=== PATIENT | male | born 1965 | race Caucasian/White ===

== ENCOUNTER 2016-06-24 16:09 | Emergency (ER) | payer MEDICAID ==
[~2016-06-24] VITALS: Ht 188 cm; Wt 77.9 kg
[~2016-06-24 16:09] MED LIST: LEVO500T33 PO; SULF1TAB24 PO; TAMS-11 PO
[2016-06-24 17:25] LABS: BLOOD UREA NITROGEN 10 mg/dL (7-18)
[2016-06-24] MEDS ORDERED: OMNIPAQUE 350 MG/ML, 100ML BOTTLE ONE (21:31)
[2016-06-24 22:38] VITALS: BP 113/82
== END 2016-06-24 22:40 | disposition home or self-care (01) ==
LOC: ED 21:59
DX: R33.9 Retention of urine, unspecified (principal); N13.30 Unspecified hydronephrosis
CPT/HCPCS: 36415; 51702; 74177; 80048; 81003; 82040; 85025; 99285; Q9967

== ENCOUNTER 2016-06-26 06:35 | Emergency (ER) | payer MEDICAID ==
[~2016-06-26] VITALS: Ht 188 cm; Wt 77.0 kg
[2016-06-26] MEDS ORDERED: CEFTRIAXONE 1,000 MG IM ONE (07:30)
[2016-06-26 07:59] LABS: ASPARTATE AMINO TRANSFERASE 15 U/L (15-37); BLOOD UREA NITROGEN 9 mg/dL (7-18)
[2016-06-26 11:03] VITALS: BP 133/79
== END 2016-06-26 11:05 | disposition home or self-care (01) ==
LOC: ED 07:58
DX: T83.511A Infection and inflammatory reaction due to indwelling urethral catheter, initial encounter (principal); R31.0 Gross hematuria; N40.0 Benign prostatic hyperplasia without lower urinary tract symptoms; J96.90 Respiratory failure, unspecified, unspecified whether with hypoxia or hypercapnia; C85.90 Non-Hodgkin lymphoma, unspecified, unspecified site
CPT/HCPCS: 36415; 80053; 85025; 85610; 85730; J0696; 51702; 96372

== ENCOUNTER 2016-07-26 13:26 | Emergency (ER) | payer MEDICAID ==
[~2016-07-26] VITALS: Ht 188 cm; Wt 79.5 kg
[2016-07-26 18:45] VITALS: BP 137/68
== END 2016-07-26 18:48 | disposition home or self-care (01) ==
LOC: ED 17:13
DX: N39.0 Urinary tract infection, site not specified (principal); R31.9 Hematuria, unspecified; N40.1 Benign prostatic hyperplasia with lower urinary tract symptoms; R33.8 Other retention of urine
CPT/HCPCS: 51701; 81001; 87086

== ENCOUNTER 2016-08-02 03:49 | Emergency (ER) | payer MEDICAID ==
[~2016-08-02] VITALS: Ht 188 cm; Wt 80.5 kg
[2016-08-02 09:04] VITALS: BP 124/83
== END 2016-08-02 09:07 | disposition home or self-care (01) ==
LOC: ED 07:15
DX: T83.098A Other mechanical complication of other urinary catheter, initial encounter (principal); X58.XXXA Exposure to other specified factors, initial encounter; Y92.89 Other specified places as the place of occurrence of the external cause
CPT/HCPCS: 51702; 81001; 87086

== ENCOUNTER 2017-07-23 12:59 | Emergency (ER) | payer MEDICAID ==
[~2017-07-23] VITALS: Ht 188 cm; Wt 77.3 kg
[~2017-07-23 12:59] MED LIST changes: -LEVO500T33 PO; +LEVO500T47 PO
[2017-07-23 13:02] VITALS: BP 110/66
[2017-07-23] MEDS ORDERED: OXYcodone/APAP 5/325MG TABLET ONE (13:55)
[2017-07-23] MEDS ORDERED: OXYcodone/APAP 5/325MG TABLET PO ONE (14:00)
== END 2017-07-23 15:10 | disposition home or self-care (01) ==
LOC: ED 15:04
DX: S46.011A Strain of muscle(s) and tendon(s) of the rotator cuff of right shoulder, initial encounter (principal); W01.0XXA Fall on same level from slipping, tripping and stumbling without subsequent striking against object, initial encounter; Y93.89 Activity, other specified; Y99.8 Other external cause status; Y92.410 Unspecified street and highway as the place of occurrence of the external cause
CPT/HCPCS: 99284

== ENCOUNTER 2017-08-14 10:45 | Emergency (ER) | payer MEDICAID ==
[~2017-08-14] VITALS: Ht 188 cm; Wt 74.4 kg
[2017-08-14 10:48] VITALS: BP 102/67
== END 2017-08-14 12:03 | disposition home or self-care (01) ==
LOC: ED 11:56
DX: M25.562 Pain in left knee (principal); F17.200 Nicotine dependence, unspecified, uncomplicated
CPT/HCPCS: 99284

== ENCOUNTER 2018-01-23 02:25 | Emergency (ER) | payer MEDICAID ==
[~2018-01-23] VITALS: Ht 188 cm; Wt 78.1 kg
[2018-01-23] MEDS ORDERED: CLINDAMYCIN 300 MG CAPSULE PO ONE (04:30)
[2018-01-23] MEDS ORDERED: CLINDAMYCIN 300 MG CAPSULE ONE (04:32)
[2018-01-23 05:32] VITALS: BP 134/81
== END 2018-01-23 05:34 | disposition home or self-care (01) ==
LOC: ED 03:08
DX: I83.018 Varicose veins of right lower extremity with ulcer other part of lower leg (principal); I83.028 Varicose veins of left lower extremity with ulcer other part of lower leg; L03.115 Cellulitis of right lower limb; L97.829 Non-pressure chronic ulcer of other part of left lower leg with unspecified severity; L97.819 Non-pressure chronic ulcer of other part of right lower leg with unspecified severity; F17.210 Nicotine dependence, cigarettes, uncomplicated; Z87.438 Personal history of other diseases of male genital organs
CPT/HCPCS: 99283

== ENCOUNTER 2018-04-25 18:18 | Emergency (ER) | payer MEDICAID ==
[~2018-04-25] VITALS: Ht 188 cm; Wt 76.5 kg
--- NOTE | 2018-04-25 19:20 | NUR ---
18fr cath ordered from central supply. awaiting arrival
--- NOTE | 2018-04-25 20:20 | NUR ---
LUNA PLACED PER PROTOCOL. PT TOLERATED PROCEDURE WELL. CLOUDY YELLOW DRAINING. RISHI Pappas RN WITNESS TO INSERTION.
[2018-04-25 21:38] VITALS: BP 137/94
== END 2018-04-25 21:50 | disposition home or self-care (01) ==
LOC: ED 18:53
DX: T83.031A Leakage of indwelling urethral catheter, initial encounter (principal); Y84.6 Urinary catheterization as the cause of abnormal reaction of the patient, or of later complication, without mention of misadventure at the time of the procedure
CPT/HCPCS: 51702; 99284

== ENCOUNTER 2018-04-26 18:56 | Emergency (ER) | payer MEDICAID ==
[~2018-04-26] VITALS: Ht 188 cm; Wt 77.3 kg
[2018-04-26 19:12] VITALS: BP 114/66
--- NOTE | 2018-04-26 22:29 | NUR ---
PT HERE FOR CATHETER LEAK. PT REPROTS CATHETER WAS PLACED LAST WEEK. PT REPORTS HE HAS NOT SEEN HIS UROLOGIST. PT REPORTS NO TRUAMA TO AREA. CATH TO BE REPLACED.
--- NOTE | 2018-04-26 22:47 | NUR ---
PTS CATHETER REPLACED WITHOUT COMPLICATION. PT UA SENT TO LAB.
[2018-04-26 22:59] LABS: CULTURE INDICATED? YES; MICROSCOPIC INDICATED
[2018-04-26] MEDS ORDERED: CEFDINIR 300 MG CAPSULE PO ONE (23:30)
[2018-04-26] MEDS ORDERED: CEFDINIR 300 MG CAPSULE ONE (23:47)
[2018-04-26] MEDS ORDERED: LOPERAMIDE 2 MG CAPSULE ONE (23:51)
--- NOTE | 2018-04-26 23:53 | NUR ---
Patient/Caregiver given discharge instructions and they have confirmed that they understand the instructions. Patient ambulatory with steady gait.
== END 2018-04-26 23:54 | disposition home or self-care (01) ==
LOC: ED 22:50
DX: T83.038A Leakage of other urinary catheter, initial encounter (principal); N30.01 Acute cystitis with hematuria; F17.200 Nicotine dependence, unspecified, uncomplicated; N40.0 Benign prostatic hyperplasia without lower urinary tract symptoms
CPT/HCPCS: 51702; 81001; 87077; 87086; 99284; C1726; 87186

== ENCOUNTER 2018-04-27 02:03 | Emergency (ER) | payer MEDICAID ==
[~2018-04-27] VITALS: Ht 188 cm; Wt 76.9 kg
--- NOTE | 2018-04-27 02:38 | NUR ---
PT. REPORTS "THEY JUST PUT A CATHETER IN I LEFT AT 0000 AND IT PASSED A COUPLE OF BIG CLOTS AND IT'S ALREADY PLUGGED UP". per triage note
--- NOTE | 2018-04-27 03:04 | NUR ---
irrigated gates flushed and back out 200mls in and 200mls out pt stated having bladder spasm a lot irrigation was stopped no clots have been seen vss updated
--- NOTE | 2018-04-27 03:35 | NUR ---
urine is flowing via gates pt understood pt up ambulated to check out after given all dc instruction
[2018-04-27 03:36] VITALS: BP 120/75
== END 2018-04-27 03:38 | disposition home or self-care (01) ==
LOC: ED 03:27
DX: T83.091A Other mechanical complication of indwelling urethral catheter, initial encounter (principal); N30.01 Acute cystitis with hematuria
CPT/HCPCS: 51700; 99284

== ENCOUNTER 2018-04-27 22:11 | Emergency (ER) | payer MEDICAID ==
[~2018-04-27] VITALS: Ht 188 cm; Wt 76.1 kg
[2018-04-27 22:22] VITALS: BP 110/77
--- NOTE | 2018-04-27 22:39 | NUR ---
"CLOGGED CATHETER. STOPPED FLOWING AROUND 4 HOURS AGO" SEEN HERE THIS AM FOR SAME
--- NOTE | 2018-04-27 23:00 | NUR ---
flushed cath, leaked around anhd did not drain all fluid
--- NOTE | 2018-04-27 23:57 | NUR ---
Patient/Caregiver given discharge instructions and they have confirmed that they understand the instructions. Patient ambulatory with steady gait.
== END 2018-04-28 00:14 ==
LOC: ED 23:56
DX: T83.091A Other mechanical complication of indwelling urethral catheter, initial encounter (principal); R33.9 Retention of urine, unspecified; N40.0 Benign prostatic hyperplasia without lower urinary tract symptoms
CPT/HCPCS: 51702; 99284

== ENCOUNTER 2018-12-24 04:22 | Inpatient (IN) | payer MEDICAID ==
[~2018-12-24] VITALS: Ht 188 cm; Wt 75.9 kg
[~2018-12-24 04:22] MED LIST changes: +FINA5TAB4 PO
--- NOTE | 2018-12-24 04:46 | NUR ---
PT BIB [facility] TONIGHT WITH CHIEF COMPLAINT OF INCREASING WEAKNESS X 3 WEEKS WITH LETHARGY AND INABILITY FOR PT TO STRAIGHT CATH HIMSELF. PER EMS, PT RETAINING URINE. 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 PER EMS, NO INTERVENTIONS OR EKG WERE DONE EN ROUTE TO [facility] ED. UPON ARRIVAL TO [facility] ED, PT WAS FOUND TO BE 84% ON ROOM AIR. PT PLACED ON NC AND OXY MASK WITH INABILITY TO IMPROVE PT HYPOXIA. PT PLACED ON 15 L NON-REBREATHER. PT HR [address] WITH OCCASIONAL PVC ON THE MONITOR. PT PLACED INTO GOWN. IV ACCESS ESTABLISHED. LABS DRAWN AND SENT TO LAB AT THIS TIME. DR. BROWN AT BS WITH PT FOR HISTORY AND ASSESSMENT. AWAITING ORDERS AT THIS TIME. CISSP JILL NOTIFIED OF PT CONDITION AND PT WAS TRANSFERRED TO TRAUMA ROOM. REPORT OF PT TO BEE DONG WHO IS ASSUMING CARE OF THIS PT.
[2018-12-24] MEDS ORDERED: PIPERACILLIN/TAZO/PMX 3.375GM 50 ML ONE (04:58)
[2018-12-24] MEDS ORDERED: SODIUM CHLORIDE FLUSH 10ML SYR IVF ONE ×2 (05:00→06:00)
[2018-12-24] MEDS ORDERED: SODIUM CHLORIDE 0.9% 1,000ML IVBOLUS ONE ×3 (05:00→06:00)
[2018-12-24] MEDS ORDERED: VANCOMYCIN PER PHARMACY MC ONE (05:00)
[2018-12-24] MEDS ORDERED: PIPERACILLIN/TAZO/PMX 3.375GM 50 ML IVPB ONE (05:00)
[2018-12-24 05:05] LABS: INTERNATIONAL NORMALIZED RATIO 1.16 (0.93-1.1); PROTHROMBIN TIME 12.1 Seconds (9.6-11.5)
[2018-12-24 05:07] LABS: ALANINE AMINOTRANSFERASE 17 U/L (12-78); ALBUMIN 2.8 g/dL (3.4-5.0); ANION GAP 13 mmol/L (5-15); CALCIUM 8.9 mg/dL (8.5-10.1); CHLORIDE 108 mmol/L (98-107); CREATININE 1.61 mg/dL (0.7-1.3)
--- NOTE | 2018-12-24 05:09 | NUR ---
BC X2 DONE BY LAB. ABX NOW INFUSING. RT AT BEDSIDE TO TRIAL OPTIFLOW
[2018-12-24 05:12] LABS: ALKALINE PHOSPHATASE 124 U/L (45-117); BILIRUBIN,TOTAL 1.4 mg/dL (0.2-1.0); TOTAL PROTEIN 6.9 g/dL (6.4-8.2); TROPONIN I < 0.015 ng/mL (0.000-0.045)
[2018-12-24] MEDS ORDERED: FUROSEMIDE 40 MG/4 ML ONE (05:19)
[2018-12-24] MEDS ORDERED: SODIUM BICARBONATE 1 MEQ/ML, 50ML VIAL ONE (05:19)
[2018-12-24] MEDS ORDERED: CALCIUM CHLORIDE 10%, 10ML SYR ONE (05:19)
[2018-12-24 05:21] LABS: MEAN CORPUSCULAR HEMOGLOBIN 37.6 pg (27.5-34.5); MEAN CORPUSCULAR HGB CONC 32.5 g/dL (33.2-36.2); MEAN CORPUSCULAR VOLUME 115.4 fL (81-97); RED BLOOD COUNT 2.97 x10^6/uL (4.38-5.82); RED CELL DISTRIBUTION WIDTH 25.4 % (9.4-14.8)
[2018-12-24] MEDS ORDERED: INSULIN SINGLE DOSE, ER SQ-INSULIN ONE (05:21)
[2018-12-24] MEDS ORDERED: CALCIUM CHLORIDE 10%, 10ML SYR IVPush ONE (05:30)
[2018-12-24] MEDS ORDERED: DEXTROSE 50%, 50ML SYRINGE IVPush ONE (05:30)
[2018-12-24] MEDS ORDERED: SODIUM BICARB 8.4%, 50ML SYRINGE IVPush ONE (05:30)
[2018-12-24] MEDS ORDERED: FUROSEMIDE 40 MG/4 ML IVPush ONE (05:30)
[2018-12-24] MEDS ORDERED: ALBUTEROL 0.5%, 20ML NPPB ONE (05:30)
[2018-12-24] MEDS ORDERED: VANCOMYCIN 1,300 MG in SODIUM CHLORIDE 0.9% 250 ML IV ONE (05:30)
[2018-12-24] MEDS ORDERED: INSULIN REGULAR 100 UNITS/ML, 3ML VIAL IVPush ONE (05:30)
[2018-12-24 05:39] LABS: MICROSCOPIC AUTO
[2018-12-24 05:42] LABS: CULTURE INDICATED? YES
[2018-12-24 05:45] LABS: MD YES
[2018-12-24 05:49] LABS: MEAN PLATELET VOLUME 8.8 fL (7.4-10.4); PLATELET COUNT 172 x10^3/uL (130-400)
[2018-12-24 05:51] LABS: BAND#(MANUAL) 1.51 x10^3/uL; BANDS%(MANUAL) 1 % (0-7); MONOS#(MANUAL) 6.04 x10^3/uL (0.3-2.7); MONOS% (MANUAL) 4 % (2-9); NRBC % (MANUAL) 1 % (0-1); OTHER CELLS # (MANUAL) 113.33 x10^3/uL (0-0); SEG#(MANUAL) 30.22 x10^3/uL (1.8-6.8); SEGS% (MANUAL) 20 % (42-75)
[2018-12-24 05:53] LABS: <PLATELET ESTIMATE> ADEQUATE; <PLT MORPHOLOGY> NORMAL PLT MORPH; ANISOCYTOSIS 2+; POLYCHROMASIA 1+; SMUDGE CELLS 1+
[2018-12-24] MEDS ORDERED: SODIUM CHLORIDE 0.9% 1,000 ML IV ONE (05:53)
[2018-12-24 05:56] LABS: TOXIC GRAN 1+
[2018-12-24 06:00] LABS: OTHER CELLS % (MANUAL) 75 % (0-0)
--- NOTE | 2018-12-24 06:03 | NUR ---
PT TOLERATING OPTIFLOW WELL. PTS RESP DISTRESS HAS SOMEWHAT IMPROVED. PT GIVEN SMALL SIPS OF WATER PER MD LONG. POC DISCUSSED. PT AWARE WITH PLAN TO ADMIT. PT DENIES FURTHER NEEDS AT THIS TIME.
[2018-12-24] MEDS ORDERED: ACETAMINOPHEN 500 MG TABLET ONE (06:06)
--- NOTE | 2018-12-24 06:09 | NUR ---
PT WAS FOUND TO HAVE A CORE TEMP OF 101.1. MD INFORMED. PT MEDICATED WITH TYLENOL. PT TAKING PO FLUIDS WELL.
--- NOTE | 2018-12-24 06:22 | NUR ---
DR MARS REQUESTS TO SEE PT IN THE CCU. BED REQUEST MADE.
[2018-12-24] MEDS ORDERED: ACETAMINOPHEN 500 MG TABLET PO ONE (06:30)
[2018-12-24] MEDS ORDERED: ONDANSETRON 2MG/ML, 2ML IVPush PRN (08:00)
[2018-12-24] MEDS ORDERED: morphine SULFATE 10 MG/ML, 1ML IVPush PRN (08:00)
[2018-12-24] MEDS ORDERED: ENALAPRILAT 1.25 MG/ML, 2ML IVPush PRN (08:00)
[2018-12-24] MEDS ORDERED: LABETALOL 5MG/ML, 20ML IVPush PRN (08:00)
[2018-12-24] MEDS ORDERED: POLYETHYLENE GLYCOL 17 GM PACKET PO PRN (08:00)
[2018-12-24] MEDS ORDERED: VANCOMYCIN PER PHARMACY MC PRN (08:00)
[2018-12-24] MEDS ORDERED: BISACODYL 10 MG SUPP PR PRN (08:00)
[2018-12-24] MEDS ORDERED: LIDOCAINE 1%, 10ML ONE (08:03)
[2018-12-24] MEDS ORDERED: ALBUMIN HUMAN 25% 100 ML IV ONE (09:00)
[2018-12-24] MEDS: SODIUM BICARBONATE 8.4% 150 MEQ in DEXTROSE 5% 1,000 ML IV SCH ×2 (09:02→20:47)
[2018-12-24 09:18] LABS: TROPONIN I < 0.015 ng/mL (0.000-0.045)
[2018-12-24] MEDS: PANTOPRAZOLE 40 MG IV IVPush SCH (09:21)
[2018-12-24] MEDS: SENNA/DOCUSATE TABLET PO SCH (09:21)
[2018-12-24] MEDS: ENOXAPARIN 40 MG/0.4 ML SQ SCH (09:21)
[2018-12-24 09:33] VITALS: BP 98/61
[2018-12-24] MEDS ORDERED: VANCOMYCIN 1,400 MG in SODIUM CHLORIDE 0.9% 250 ML IV SCH ×2 (10:00→23:00)
[2018-12-24] MEDS ORDERED: PHARMACOKINETIC MONITORING MC PRN (10:00)
[2018-12-24] MEDS ORDERED: ALBUTEROL SULFATE 2.5 MG/3 ML NPPB PRN (10:00)
[2018-12-24] MEDS: MEROPENEM 1 GM in SODIUM CHLORIDE 0.9% 100 ML IV SCH ×2 (11:58→17:20)
[2018-12-24] MEDS ORDERED: RASBURICASE 7.5 MG in SODIUM CHLORIDE 0.9% 50 ML IV ONE (12:30)
[2018-12-24 14:04] LABS: TROPONIN I < 0.015 ng/mL (0.000-0.045)
[2018-12-25] MEDS: MEROPENEM 1 GM in SODIUM CHLORIDE 0.9% 100 ML IV SCH ×3 (01:38→17:08)
[2018-12-25] MEDS: SODIUM CHLORIDE 0.9% 1,000 ML IV SCH ×4 (01:38→21:18)
[2018-12-25 04:33] LABS: ALANINE AMINOTRANSFERASE 11 U/L (12-78); ALBUMIN 2.2 g/dL (3.4-5.0); ANION GAP 5 mmol/L (5-15); CALCIUM 7.7 mg/dL (8.5-10.1); CHLORIDE 109 mmol/L (98-107); CREATININE 0.97 mg/dL (0.7-1.3)
[2018-12-25 04:35] LABS: ALKALINE PHOSPHATASE 82 U/L (45-117); BILIRUBIN,TOTAL 1.5 mg/dL (0.2-1.0); TOTAL PROTEIN 5.1 g/dL (6.4-8.2); VANCOMYCIN,RANDOM 21.1 mcg/mL
[2018-12-25 04:42] LABS: MEAN CORPUSCULAR HEMOGLOBIN 36.8 pg (27.5-34.5); MEAN CORPUSCULAR HGB CONC 31.4 g/dL (33.2-36.2); MEAN CORPUSCULAR VOLUME 117.1 fL (81-97); MEAN PLATELET VOLUME 8.6 fL (7.4-10.4); PLATELET COUNT 117 x10^3/uL (130-400); RED CELL DISTRIBUTION WIDTH 24.6 % (9.4-14.8)
[2018-12-25 05:37] LABS: MD YES
[2018-12-25 05:46] LABS: LYMPH#(MANUAL) 1.26 x10^3/uL (1-3.4); LYMPHS% (MANUAL) 1 % (22-44); MONOS#(MANUAL) 2.52 x10^3/uL (0.3-2.7); MONOS% (MANUAL) 2 % (2-9); NRBC % (MANUAL) 1 % (0-1); OTHER CELLS # (MANUAL) 105.76 x10^3/uL (0-0); OTHER CELLS % (MANUAL) 84 % (0-0); SEG#(MANUAL) 16.37 x10^3/uL (1.8-6.8); SEGS% (MANUAL) 13 % (42-75)
[2018-12-25 05:48] LABS: ANISOCYTOSIS 2+; POLYCHROMASIA 1+; SMUDGE CELLS 1+; TARGET CELLS 1+
[2018-12-25 05:49] LABS: <PLATELET ESTIMATE> DECREASED; <PLT MORPHOLOGY> NORMAL PLT MORPH
[2018-12-25] MEDS: FINASTERIDE 5 MG TABLET PO SCH (09:36)
[2018-12-25] MEDS: PANTOPRAZOLE 40 MG IV IVPush SCH (09:36)
[2018-12-25] MEDS: TAMSULOSIN 0.4 MG CAP.ER.24H PO SCH (09:36)
[2018-12-25] MEDS: ENOXAPARIN 40 MG/0.4 ML SQ SCH (09:37)
[2018-12-25] MEDS: SENNA/DOCUSATE TABLET PO SCH (09:37)
[2018-12-25] MEDS: VANCOMYCIN 1,400 MG in SODIUM CHLORIDE 0.9% 250 ML IV SCH ×2 (11:31→22:54)
[2018-12-25] MEDS: HEPARIN 25,000 UNITS/500ML PMX 500 ML IV PRN (15:56)
[2018-12-25] MEDS ORDERED: HEPARIN 5,000 UNITS/ML, 1ML IV ONE (16:00)
[2018-12-25] MEDS: ACETAMINOPHEN 325 MG TABLET PO PRN (17:37)
[2018-12-25] MEDS: HEPARIN 5,000 UNITS/ML, 1ML IV PRN (22:35)
[2018-12-25] MEDS ORDERED: TRAZODONE 50MG TABLET PO ONE (23:00)
[2018-12-25] MEDS ORDERED: TRAZODONE 50MG TABLET ONE (23:01)
[2018-12-26] MEDS: MEROPENEM 1 GM in SODIUM CHLORIDE 0.9% 100 ML IV SCH ×3 (00:51→17:15)
[2018-12-26] MEDS: ACETAMINOPHEN 325 MG TABLET PO PRN (01:06)
[2018-12-26 05:32] LABS: ANION GAP 8 mmol/L (5-15); CALCIUM 7.8 mg/dL (8.5-10.1); CHLORIDE 107 mmol/L (98-107); MEAN CORPUSCULAR HEMOGLOBIN 36.5 pg (27.5-34.5); MEAN CORPUSCULAR HGB CONC 30.8 g/dL (33.2-36.2); MEAN CORPUSCULAR VOLUME 118.7 fL (81-97); MEAN PLATELET VOLUME 9.6 fL (7.4-10.4); PLATELET COUNT 111 x10^3/uL (130-400); RED BLOOD COUNT 2.45 x10^6/uL (4.38-5.82); RED CELL DISTRIBUTION WIDTH 25.9 % (9.4-14.8)
[2018-12-26 05:33] LABS: CREATININE 0.81 mg/dL (0.7-1.3)
[2018-12-26] MEDS: HEPARIN 5,000 UNITS/ML, 1ML IV PRN ×3 (05:50→21:02)
[2018-12-26 05:55] LABS: MD YES
[2018-12-26 05:59] LABS: BANDS%(MANUAL) 1 % (0-7); LYMPHS% (MANUAL) 1 % (22-44); MONOS% (MANUAL) 1 % (2-9); NRBC % (MANUAL) 2 % (0-1); OTHER CELLS # (MANUAL) 122.94 x10^3/uL (0-0); OTHER CELLS % (MANUAL) 88 % (0-0); SEG#(MANUAL) 12.57 x10^3/uL (1.8-6.8); SEGS% (MANUAL) 9 % (42-75)
[2018-12-26 06:01] LABS: ANISOCYTOSIS 2+; POLYCHROMASIA 1+
[2018-12-26 06:02] LABS: <PLATELET ESTIMATE> DECREASED; <PLT MORPHOLOGY> NORMAL PLT MORPH; SMUDGE CELLS 1+
[2018-12-26] MEDS ORDERED: TRAZODONE 50MG TABLET PO PRN (08:30)
[2018-12-26] MEDS: FINASTERIDE 5 MG TABLET PO SCH (08:46)
[2018-12-26] MEDS: PANTOPRAZOLE 40 MG IV IVPush SCH (08:46)
[2018-12-26 08:48] LABS: HIT RESULT NEGATIVE (NEGATIVE)
[2018-12-26] MEDS: SENNA/DOCUSATE TABLET PO SCH (08:48)
[2018-12-26] MEDS: TAMSULOSIN 0.4 MG CAP.ER.24H PO SCH (08:48)
[2018-12-26] MEDS: VANCOMYCIN 1,400 MG in SODIUM CHLORIDE 0.9% 250 ML IV SCH (12:34)
[2018-12-26] MEDS ORDERED: ELECTROLYTE REPLACEMENT PROTOCOL CRITICAL CARE ONLY MC PRN (13:30)
[2018-12-26] MEDS ORDERED: POTASSIUM CHLORIDE 20 MEQ TAB.ER.PRT PO ONE (14:30)
[2018-12-26] MEDS: TRAZODONE 50MG TABLET PO PRN (23:51)
[2018-12-27] MEDS: VANCOMYCIN 1,400 MG in SODIUM CHLORIDE 0.9% 250 ML IV SCH ×2 (00:39→12:27)
[2018-12-27] MEDS: MEROPENEM 1 GM in SODIUM CHLORIDE 0.9% 100 ML IV SCH ×3 (01:48→16:40)
[2018-12-27 03:14] LABS: ANION GAP 7 mmol/L (5-15); CALCIUM 7.8 mg/dL (8.5-10.1); CHLORIDE 109 mmol/L (98-107); CREATININE 0.77 mg/dL (0.7-1.3)
[2018-12-27] MEDS: HEPARIN 25,000 UNITS/500ML PMX 500 ML IV PRN (06:50)
[2018-12-27] MEDS: PANTOPRAZOLE 40 MG IV IVPush SCH (08:15)
[2018-12-27] MEDS: TAMSULOSIN 0.4 MG CAP.ER.24H PO SCH (08:15)
[2018-12-27] MEDS: FINASTERIDE 5 MG TABLET PO SCH (08:16)
[2018-12-27] MEDS: SENNA/DOCUSATE TABLET PO SCH (08:16)
[2018-12-27] MEDS: FUROSEMIDE 20 MG/2 ML IV SCH ×2 (09:44→20:22)
[2018-12-28] MEDS: VANCOMYCIN 1,400 MG in SODIUM CHLORIDE 0.9% 250 ML IV SCH (00:36)
[2018-12-28] MEDS: HEPARIN 25,000 UNITS/500ML PMX 500 ML IV PRN (00:40)
[2018-12-28] MEDS: TRAZODONE 50MG TABLET PO PRN (00:45)
[2018-12-28] MEDS: MEROPENEM 1 GM in SODIUM CHLORIDE 0.9% 100 ML IV SCH (02:31)
[2018-12-28 05:20] LABS: ANION GAP 9 mmol/L (5-15); CALCIUM 8.1 mg/dL (8.5-10.1); CHLORIDE 107 mmol/L (98-107)
[2018-12-28 05:25] LABS: CREATININE 0.92 mg/dL (0.7-1.3)
[2018-12-28] MEDS ORDERED: PANTOPROZOLE 40MG TABLET PO SCH (06:00)
[2018-12-28] MEDS: HEPARIN 5,000 UNITS/ML, 1ML IV PRN (06:30)
[2018-12-28] MEDS: FUROSEMIDE 20 MG/2 ML IV SCH ×2 (07:57→17:13)
[2018-12-28] MEDS ORDERED: RIVAROXABAN 15 MG TABLET PO SCH (08:00)
[2018-12-28] MEDS: FINASTERIDE 5 MG TABLET PO SCH (08:07)
[2018-12-28] MEDS: TAMSULOSIN 0.4 MG CAP.ER.24H PO SCH (08:08)
[2018-12-28] MEDS: SENNA/DOCUSATE TABLET PO SCH (08:08)
[2018-12-28 08:22] LABS: O2 FLOW 50 L/min
[2018-12-28] MEDS ORDERED: LIDOCAINE 1%, 10ML ONE (11:00)
[2018-12-28 11:39] LABS: INTERNATIONAL NORMALIZED RATIO 1.1 (0.93-1.1); PROTHROMBIN TIME 11.5 Seconds (9.6-11.5)
[2018-12-28] MEDS ORDERED: ALBUMIN HUMAN 25% 100 ML IV ONE (13:30)
[2018-12-28] MEDS ORDERED: LORazepam 2 MG/ML, 1ML IVPush PRN (17:00)
[2018-12-29] MEDS ORDERED: LIDOCAINE 1%, 10ML ONE (07:43)
[2018-12-29] MEDS: FINASTERIDE 5 MG TABLET PO SCH (08:44)
[2018-12-29] MEDS: FUROSEMIDE 20 MG/2 ML IV SCH ×2 (08:44→17:47)
[2018-12-29] MEDS: TAMSULOSIN 0.4 MG CAP.ER.24H PO SCH (08:44)
[2018-12-29] MEDS: SENNA/DOCUSATE TABLET PO SCH (08:44)
[2018-12-29 09:37] LABS: ANION GAP 9 mmol/L (5-15); CALCIUM 8.1 mg/dL (8.5-10.1); CHLORIDE 102 mmol/L (98-107); CREATININE 0.97 mg/dL (0.7-1.3)
[2018-12-29 11:02] LABS: MEAN CORPUSCULAR HEMOGLOBIN 38.2 pg (27.5-34.5); MEAN CORPUSCULAR HGB CONC 32.3 g/dL (33.2-36.2); MEAN CORPUSCULAR VOLUME 118.3 fL (81-97); MEAN PLATELET VOLUME 9.2 fL (7.4-10.4); PLATELET COUNT 135 x10^3/uL (130-400); RED CELL DISTRIBUTION WIDTH 23.9 % (9.4-14.8)
[2018-12-29 11:03] LABS: MD YES
[2018-12-29 11:15] LABS: BAND#(MANUAL) 1.94 x10^3/uL; BANDS%(MANUAL) 1 % (0-7); LYMPH#(MANUAL) 1.94 x10^3/uL (1-3.4); LYMPHS% (MANUAL) 1 % (22-44); MONOS#(MANUAL) 3.87 x10^3/uL (0.3-2.7); MONOS% (MANUAL) 2 % (2-9); SEGS% (MANUAL) 6 % (42-75)
[2018-12-29 11:16] LABS: <PLATELET ESTIMATE> ADEQUATE; <PLT MORPHOLOGY> NORMAL PLT MORPH; ANISOCYTOSIS 2+; HYPOCHROMIA 1+; OTHER CELLS % (MANUAL) 90 % (0-0); POLYCHROMASIA 1+; SMUDGE CELLS 1+
[2018-12-29] MEDS: RIVAROXABAN 15 MG TABLET PO SCH (17:47)
[2018-12-30] MEDS: OXYcodone IR 5MG TABLET PO PRN ×4 (05:18→23:59)
[2018-12-30] MEDS: FUROSEMIDE 20 MG/2 ML IV SCH ×2 (08:07→18:25)
[2018-12-30] MEDS: METHYLNALTREXONE 12 MG/0.6 ML SYR SQ SCH (09:00)
[2018-12-30] MEDS ORDERED: LORazepam 1MG TABLET PO PRN (09:00)
[2018-12-30] MEDS ORDERED: LORazepam 2 MG/ML, 1ML IV PRN (09:00)
[2018-12-30] MEDS: SENNA/DOCUSATE TABLET PO SCH (09:00)
[2018-12-30] MEDS: ACETAMINOPHEN 325 MG TABLET PO PRN ×3 (10:09→23:59)
[2018-12-30] MEDS: RIVAROXABAN 15 MG TABLET PO SCH ×2 (10:09→18:25)
[2018-12-30] MEDS: TAMSULOSIN 0.4 MG CAP.ER.24H PO SCH (10:11)
[2018-12-30] MEDS: FINASTERIDE 5 MG TABLET PO SCH (10:11)
[2018-12-30] MEDS ORDERED: FAMOTIDINE 20 MG TABLET ONE (23:56)
[2018-12-30] MEDS: FAMOTIDINE 20 MG TABLET PO SCH (23:58)
[2018-12-31] MEDS: FUROSEMIDE 20 MG/2 ML IV SCH ×2 (07:17→17:33)
[2018-12-31] MEDS: OXYcodone IR 5MG TABLET PO PRN ×3 (08:59→20:26)
[2018-12-31] MEDS: TAMSULOSIN 0.4 MG CAP.ER.24H PO SCH (08:59)
[2018-12-31] MEDS: RIVAROXABAN 15 MG TABLET PO SCH ×2 (08:59→17:33)
[2018-12-31] MEDS: FAMOTIDINE 20 MG TABLET PO SCH ×2 (08:59→20:25)
[2018-12-31] MEDS: ACETAMINOPHEN 325 MG TABLET PO PRN (08:59)
[2018-12-31] MEDS: SENNA/DOCUSATE TABLET PO SCH (09:00)
[2018-12-31] MEDS: FINASTERIDE 5 MG TABLET PO SCH (09:01)
[2018-12-31 10:30] VITALS: BP 101/56
[2018-12-31 14:05] VITALS: BP 97/62
[2018-12-31 19:12] VITALS: BP 110/68
[2019-01-01] MEDS: OXYcodone IR 5MG TABLET PO PRN ×3 (00:37→08:14)
[2019-01-01 01:32] VITALS: BP 112/73
[2019-01-01 07:31] VITALS: BP 106/66
[2019-01-01] MEDS: RIVAROXABAN 15 MG TABLET PO SCH ×2 (08:15→16:48)
[2019-01-01] MEDS: FUROSEMIDE 20 MG/2 ML IV SCH ×2 (08:15→16:48)
[2019-01-01] MEDS: TAMSULOSIN 0.4 MG CAP.ER.24H PO SCH (08:15)
[2019-01-01] MEDS: FINASTERIDE 5 MG TABLET PO SCH (08:16)
[2019-01-01] MEDS: SENNA/DOCUSATE TABLET PO SCH (08:16)
[2019-01-01] MEDS: FAMOTIDINE 20 MG TABLET PO SCH ×2 (08:16→21:00)
[2019-01-01] MEDS: METHYLNALTREXONE 12 MG/0.6 ML SYR SQ SCH (08:19)
[2019-01-01 12:54] VITALS: BP 111/73
[2019-01-01 21:00] VITALS: BP 101/62
[2019-01-02 01:35] VITALS: BP 123/73
[2019-01-02] MEDS ORDERED: MORPHINE SULFATE 4 MG/ML, 1ML IVPush PRN (03:00)
[2019-01-02 07:35] VITALS: BP 108/66
[2019-01-02] MEDS ORDERED: morphine SULFATE 10 MG/ML, 1ML IVPush PRN ×2 (08:00)
[2019-01-02] MEDS: FUROSEMIDE 20 MG/2 ML IV SCH (08:09)
[2019-01-02] MEDS: RIVAROXABAN 15 MG TABLET PO SCH (08:11)
[2019-01-02] MEDS: FAMOTIDINE 20 MG TABLET PO SCH (08:11)
[2019-01-02] MEDS: TAMSULOSIN 0.4 MG CAP.ER.24H PO SCH (08:11)
[2019-01-02] MEDS: SENNA/DOCUSATE TABLET PO SCH ×2 (08:11→08:18)
[2019-01-02] MEDS: FINASTERIDE 5 MG TABLET PO SCH (10:33)
[2019-01-02 14:52] VITALS: BP 109/65
== END 2019-01-02 17:22 | disposition hospice, home (50) | DRG 871 ==
LOC: ED 06:05 → EDIP 06:11 → CCU 07:04 → CSU 12-29 10:17 → 4NW 12-31 10:20
PROVIDERS: ADMIT Internal Medicine; ATTEND Internal Medicine
PROC: 0W9B3ZZ Drainage of Left Pleural Cavity, Percutaneous Approach (ICD-10-PCS; principal; 2018-12-24)
PROC: 0T9B70Z Drainage of Bladder with Drainage Device, Via Natural or Artificial Opening (ICD-10-PCS; 2018-12-24)
PROC: 0W9B30Z Drainage of Left Pleural Cavity with Drainage Device, Percutaneous Approach (ICD-10-PCS; 2018-12-28)
PROC: 0W993ZZ Drainage of Right Pleural Cavity, Percutaneous Approach (ICD-10-PCS; 2018-12-29)
DX: A41.52 Sepsis due to Pseudomonas (principal); E43 Unspecified severe protein-calorie malnutrition; E88.3 Tumor lysis syndrome; J15.9 Unspecified bacterial pneumonia; J81.0 Acute pulmonary edema; J96.01 Acute respiratory failure with hypoxia; N17.0 Acute kidney failure with tubular necrosis; B17.9 Acute viral hepatitis, unspecified; C83.30 Diffuse large B-cell lymphoma, unspecified site; J91.0 Malignant pleural effusion; J98.19 Other pulmonary collapse; D63.8 Anemia in other chronic diseases classified elsewhere; Z68.21 Body mass index [BMI] 21.0-21.9, adult; E83.39 Other disorders of phosphorus metabolism; E86.0 Dehydration; E87.5 Hyperkalemia; F17.200 Nicotine dependence, unspecified, uncomplicated; J43.9 Emphysema, unspecified; N40.0 Benign prostatic hyperplasia without lower urinary tract symptoms; Z80.7 Family history of other malignant neoplasms of lymphoid, hematopoietic and related tissues; Z82.49 Family history of ischemic heart disease and other diseases of the circulatory system; Z91.19 Patient's noncompliance with other medical treatment and regimen; Z79.4 Long term (current) use of insulin; R93.89 Abnormal findings on diagnostic imaging of other specified body structures; Z51.5 Encounter for palliative care
CPT/HCPCS: 32555; 32557; 36415; 36600; 74018; 82042; 82150; 82945; 83986; 84145; 89051; 96365; 96366; 96368; 96375; 99291; J3490; J7613; 71045; 71250; 80048; 80053; 80202; 81001; 82803; 83605; 83615; 83735; 83880; 84100; 84157; 84484; 84550; 85025; 85520; 85610; 85730; 86022; 87040; 87070; 87075; 87077; 87081; 87086; 87102; 87186; 87205; 88112; 88305; 93005; 93306; 94640; G0378; J1644; J1650; J1815; J1940; J2185; J2543; J2783; J3370; J7070; P9047; C1729; C9113; J2060; J2270; J7030; J7050

== ENCOUNTER 2019-01-02 16:46 | Inpatient (IN) | payer OTHER ==
[~2019-01-02] VITALS: Ht 188 cm; Wt 75.9 kg
[2019-01-02] MEDS ORDERED: SODIUM CHLORIDE 0.9% 1,000 ML IV SCH (17:25)
[2019-01-02] MEDS ORDERED: ONDANSETRON 2MG/ML, 2ML IVPush PRN (17:30)
[2019-01-02] MEDS ORDERED: LORazepam 2 MG/ML, 1ML IVPush PRN (17:30)
[2019-01-02] MEDS ORDERED: MORPHINE SULFATE 4 MG/ML, 1ML IVPush PRN ×2 (17:30)
[2019-01-02] MEDS ORDERED: ATROPINE OPHTH SOLN 1%, 5ML BC PRN (17:30)
[2019-01-02] MEDS ORDERED: SCOPOLAMINE PATCH, 1.5MG PATCH.TD72 TD SCH (17:30)
[2019-01-02] MEDS ORDERED: PLEASE ENTER HEIGHT AND WEIGHT MC SCH (18:00)
[2019-01-02] MEDS: MORPHINE SULFATE 4 MG/ML, 1ML IVPush PRN (18:42)
[2019-01-03] MEDS: MORPHINE SULFATE 4 MG/ML, 1ML IVPush PRN (05:54)
[2019-01-03] MEDS ORDERED: ZIPRASIDONE 20 MG INJ IM PRN (10:00)
[2019-01-03] MEDS ORDERED: morphine SULFATE ORAL.CONC 20 MG/ML PO PRN (10:00)
[2019-01-03] MEDS ORDERED: MORPHINE SULFATE 4 MG/ML, 1ML IVPush ONE (16:00)
[2019-01-03] MEDS ORDERED: HALOPERIDOL 5 MG/ML IV SCH (16:00)
[2019-01-03] MEDS ORDERED: LORazepam 2 MG/ML, 1ML IVPush ONE (16:00)
[2019-01-03] MEDS ORDERED: LORazepam 2 MG/ML, 1ML IVPush SCH (16:00)
== END 2019-01-03 17:05 | disposition expired | DRG 840 ==
LOC: 4NW 17:38
PROVIDERS: ADMIT Internal Medicine; ATTEND Internal Medicine
DX: C83.30 Diffuse large B-cell lymphoma, unspecified site (principal); A41.9 Sepsis, unspecified organism; E88.3 Tumor lysis syndrome; J18.9 Pneumonia, unspecified organism; J96.20 Acute and chronic respiratory failure, unspecified whether with hypoxia or hypercapnia; N39.0 Urinary tract infection, site not specified; J91.0 Malignant pleural effusion; N17.9 Acute kidney failure, unspecified; B96.5 Pseudomonas (aeruginosa) (mallei) (pseudomallei) as the cause of diseases classified elsewhere; D63.8 Anemia in other chronic diseases classified elsewhere; K75.9 Inflammatory liver disease, unspecified; N40.0 Benign prostatic hyperplasia without lower urinary tract symptoms; I07.8 Other rheumatic tricuspid valve diseases; Z66 Do not resuscitate; Z82.49 Family history of ischemic heart disease and other diseases of the circulatory system; Z80.7 Family history of other malignant neoplasms of lymphoid, hematopoietic and related tissues
CPT/HCPCS: G0378; J2270; J3486; J2060